=== PATIENT | male | born 1990 ===

== ENCOUNTER → 2021-02-10 18:51 | Outpatient (CLI) | payer OTHER | END | disposition home or self-care (01) | LOC: PPH VACUNA 18:51 | DX: Z23 Encounter for immunization (principal) ==

== ENCOUNTER 2022-10-11 14:58 | Outpatient (CLI) | payer OTHER | END 2022-10-11 15:00 | disposition home or self-care (01) | LOC: RAD 14:58 | PROVIDERS: ATTEND Orthopaedic Surgery | DX: M25.561 Pain in right knee (principal) ==